=== PATIENT | male | born 1980 | race Caucasian/White ===

== ENCOUNTER → 2017-11-15 | Outpatient (CLI) | payer SELFPAY ==
[2017-11-15 20:41] LABS: CHLAM PCR NOT DETECTED (NOT DETECT); GON PCR NOT DETECTED (NOT DETECT)
== END ==
LOC: LAB 18:40
PROVIDERS: ATTEND Nurse Practitioner Acute Care
DX: R30.0 Dysuria (principal); Z71.1 Person with feared health complaint in whom no diagnosis is made
CPT/HCPCS: 87491; 87591